=== PATIENT | male | born 1985 | race Asian ===

== ENCOUNTER 2020-03-29 12:14 | Emergency (ER) | payer OTHER ==
[~2020-03-29] VITALS: Ht 167.6 cm; Wt 77.1 kg
[2020-03-29 12:21] VITALS: BP_SYST 121
[2020-03-29 12:53] VITALS: BP_SYST 121
== END 2020-03-29 12:55 | disposition home or self-care (01) ==
LOC: SED 12:14
DX: B02.8 Zoster with other complications (principal); L03.211 Cellulitis of face
CPT/HCPCS: 99283

== ENCOUNTER 2020-03-30 22:35 | Emergency (ER) | payer OTHER ==
[~2020-03-30] VITALS: Ht 167.6 cm; Wt 77.1 kg
[2020-03-30 23:05] VITALS: BP_SYST 138
--- NOTE | 2020-03-30 23:05 | NUR ---
Received patient to ER w/ c/o increased itching to left periorbital area s/p shingles. Patient already given rx for shingles but feels uncomfortable 2nd to the increased itching. Introduced self to patient, positioned for comfort and safety w/ bed to low position sr up, continue to monitor. Patient resting quietly. No acute distress noted. Vital signs within normal range.
--- NOTE | 2020-03-30 23:23 | NUR ---
Patient given written and verbal discharge instructions and verbalizes understanding. ER MD discussed with patient the results and treatment provided. Patient in stable condition. ID arm band removed. Rx of benadryl given. Patient educated on pain management and to follow up with PMD. Pain Scale 0. Opportunity for questions provided and answered. Medication side effect fact sheet provided.
== END 2020-03-30 23:24 | disposition home or self-care (01) ==
LOC: SED 22:35
DX: B02.9 Zoster without complications (principal)
CPT/HCPCS: 99282